=== PATIENT | female | born 1995 | race Hispanic/Latino ===

== ENCOUNTER 2017-06-21 18:24 | Emergency (ER) | payer SELFPAY ==
[2017-06-21] MEDS ORDERED: TETRACAINE HCL 0.5% 4 ML OPHTH SOLN ONE (18:36)
[2017-06-21] MEDS ORDERED: FLUORESCEIN SODIUM 0.6 MG STRIP ONE (18:37)
[2017-06-21] MEDS ORDERED: NA BORATE/BORIC AC/H2O/NACL 120 ML OPHTH IRRIG SOLN ONE (18:37)
[2017-06-21] MEDS ORDERED: TETANUS/DIPHTHERIA TOXOID [ADULT] 0.5 ML VIAL IM ONE (18:43)
[2017-06-21] MEDS ORDERED: OCTYL 2-CYANOACRYLATE 1 EACH TP ONE (18:47)
== END 2017-06-21 19:26 | disposition home or self-care (01) ==
LOC: EDH 18:24
DX: S01.111A Laceration without foreign body of right eyelid and periocular area, initial encounter (principal); S05.01XA Injury of conjunctiva and corneal abrasion without foreign body, right eye, initial encounter; Z72.0 Tobacco use; W22.8XXA Striking against or struck by other objects, initial encounter; Y93.89 Activity, other specified; Y92.098 Other place in other non-institutional residence as the place of occurrence of the external cause; Y99.8 Other external cause status
CPT/HCPCS: 12051; 90471; 90714

== ENCOUNTER 2018-11-13 15:47 | Emergency (ER) | payer OTHER | END 2018-11-13 16:35 | disposition home or self-care (01) | LOC: EDH 15:47 | DX: K64.1 Second degree hemorrhoids (principal); Z72.0 Tobacco use ==